=== PATIENT | female | born 2005 | race African-American/Black ===

== ENCOUNTER 2024-03-14 14:27 | Emergency (ER) | payer OTHER ==
[~2024-03-14] VITALS: Ht 170.2 cm; Wt 65.8 kg
[2024-03-14] MEDS ORDERED: EPIN0.3P3 IM (15:30)
[2024-03-14] MEDS ORDERED: HYDR-500 PO (15:30)
[2024-03-14] MEDS ORDERED: PRED20TA PO (15:30)
[2024-03-14 15:40] VITALS: BP 110/78; TEMP 98.8; O2SAT 98
== END 2024-03-14 15:41 | disposition home or self-care (01) ==
LOC: ER 14:30
DX: T78.2XXA Anaphylactic shock, unspecified, initial encounter (principal)